=== PATIENT | female | born 2000 | race Caucasian/White ===

== ENCOUNTER 2024-03-29 14:31 | Emergency (ER) | payer BC ==
[~2024-03-29] VITALS: Ht 167.6 cm; Wt 61.4 kg
[2024-03-29] MEDS ORDERED: AMOX-580 PO (15:16)
[2024-03-29 15:19] VITALS: BP 122/68; PULSE 65; RESP 14; TEMP 98.4; O2SAT 99
== END 2024-03-29 15:27 | disposition home or self-care (01) ==
LOC: ER 14:32
DX: J32.9 Chronic sinusitis, unspecified (principal); Z79.2 Long term (current) use of antibiotics
CPT/HCPCS: 99283